=== PATIENT | male | born 2000 | race Caucasian/White ===

== ENCOUNTER 2024-01-20 11:32 | Emergency (ER) | payer MEDICAID ==
[~2024-01-20] VITALS: Ht 165.1 cm; Wt 49.9 kg
[2024-01-20 11:57] VITALS: BP_SYST 105; PULSE 113; RESP 17; TEMP 98.1; O2SAT 96
[2024-01-20] MEDS: ONDANSETRON 4 MG ODT TAB PO ONE (12:18)
[2024-01-20 12:21] LABS: BASOPHILS % (AUTO) 0.1 % (0.0-2.0); HEMATOCRIT 48.1 % (36-54); HEMOGLOBIN 15.8 g/dL (14.0-18.0); LYMPHOCYTES # (AUTO) 0.4 K/uL (1.0-5.5); MEAN CORPUSCULAR HEMOGLOBIN 28 pg (27-31); MEAN CORPUSCULAR HGB CONC 33 % (32-36); MEAN CORPUSCULAR VOLUME 85 fL (79.0-98.0); MONOCYTES # (AUTO) 0.3 K/uL (0.0-1.0); MONOCYTES % (AUTO) 2.9 % (1.7-9.3); NEUTROPHILS # (AUTO) 10.2 K/uL (1.8-7.7); PLATELET COUNT (AUTO) 311 K/uL (130-430); RED BLOOD CELL COUNT(AUTO) 5.67 MIL/uL (4.2-6.2); RED CELL DISTRIBUTION WIDTH 13.6 % (9.0-15.0)
[2024-01-20 12:41] LABS: ALANINE AMINOTRANSFERASE 17 U/L (12-78); ALBUMIN 3.7 g/dL (3.4-4.8); ANION GAP 9 (5-15); ASPARTATE AMINOTRANSFERASE 13 U/L (10-37); CALCIUM 8.6 mg/dL (8.4-11.0); CARBON DIOXIDE 31 mmol/L (23-29); CHLORIDE 105 mmol/L (98-107); CREATININE 0.81 mg/dL (0.55-1.30); GFR AFRICAN AMERICAN 153 mL/min (>90); GFR NON AFRICAN-AMERICAN 127 mL/min (>90); GLUCOSE 217 mg/dL (74-106); POTASSIUM 3.7 mmol/L (3.5-5.1); SODIUM SERUM 145 mmol/L (136-145); TOTAL BILIRUBIN 0.7 mg/dL (0.0-1.0); TOTAL PROTEIN, SERUM 7.6 g/dL (6.4-8.3); UREA NITROGEN, BLOOD 18 mg/dL (8-21)
[2024-01-20 12:50] LABS: PROTHROMBIN TIME 10.6 SECS (9.5-12.5)
[2024-01-20 13:12] LABS: AMYLASE 42 U/L (0-100); BILIRUBIN,DIRECT 0.1 mg/dL (0.0-0.3); LACTATE DEHYDROGENASE 125 U/L (85-227); LIPASE 9 U/L (16-77)
[2024-01-20 13:14] LABS: ACETONE, SERUM NEGATIVE (NEGATIVE)
[2024-01-20 14:01] LABS: BILIRUBIN,URINE NEGATIVE (NEGATIVE); BLOOD, URINE NEGATIVE (NEGATIVE); CLARITY/URINE CLEAR (CLEAR); COLOR,URINE YELLOW (YELLOW); GLUCOSE,URINE TRACE (NEGATIVE); KETONES,URINE 2+ (NEGATIVE); LEUKOCYTE ESTERASE ,URINE NEGATIVE (NEGATIVE); NITRITE, URINE NEGATIVE (NEGATIVE); PH,URINE 6.5 (5.0-8.0); PROTEIN URINE TRACE (NEGATIVE); UROBILINOGEN,URINE 0.2 (0.2-1.0)
[2024-01-20 14:19] LABS: RBC,URINE NONE SEEN /HPF (0-3); WBC,URINE NONE SEEN /HPF (0-3)
[2024-01-20 14:20] LABS: BACTERIA,URINE None Seen /HPF (None Seen); HYALINE CASTS, URINE 0-1 /LPF (None Seen); MUCUS,URINE 1+ /LPF (None Seen)
[2024-01-20] MEDS ORDERED: ONDA-8 TL (14:31)
[2024-01-20] MEDS: NACL 0.9% 1,000 ML IV ONE (15:10)
[2024-01-20] MEDS: ACETAMINOPHEN 325 MG TABLET PO ONE (15:23)
[2024-01-20] MEDS: ONDANSETRON HCL 4 MG/2 ML VIAL IVP ONE (15:23)
[2024-01-20 16:07] VITALS: BP_SYST 105; PULSE 113; RESP 17; TEMP 98.1; O2SAT 96
== END 2024-01-20 16:05 | disposition home or self-care (01) ==
LOC: SED 11:32
DX: A05.9 Bacterial foodborne intoxication, unspecified (principal); E10.9 Type 1 diabetes mellitus without complications; Z88.8 Allergy status to other drugs, medicaments and biological substances
CPT/HCPCS: 99285; 74176; 96374; 96361; 80076; 80048; 81001; 82009; 82150; 83615; 83690; 85025; 85610; 85730; 36415; 82948; 83605; 82397; Q0162; J2405; J7030; 81000; 81015